=== PATIENT | female | born 1960 | race Two or more races ===

== ENCOUNTER 2017-04-08 18:53 | Emergency (ER) | payer OTHER ==
[~2017-04-08] VITALS: Ht 172.7 cm; Wt 122.5 kg
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
--- NOTE | 2017-04-08 19:15 | NUR ---
PT REC'D AN ICE PACK TO RU CHEST.
--- NOTE | 2017-04-08 19:39 | NUR ---
NO [facility] [employer] ARE AT THE BEDSIDE. PT'S MOTHER AND FRIEND ARE ALSO AT THE BEDSIDE.
[2017-04-08] MEDS ORDERED: MORPHINE SULFATE INJ 4 MG/ML DISP.SYRIN ONE (19:42)
[2017-04-08] MEDS ORDERED: ONDANSETRON 4 MG TAB.RAPDIS ONE (19:42)
--- NOTE | 2017-04-08 19:48 | NUR ---
Mirlande monge in ED - 04/08/17 at 2000 by MARCELLE PT LEFT FOR CT VIA [facility]
[2017-04-08] MEDS ORDERED: MORPHINE SULFATE INJ 2 MG/ML DISP.SYRIN IM ONE (20:00)
[2017-04-08] MEDS ORDERED: ONDANSETRON 4 MG TAB.RAPDIS PO ONE (20:00)
--- NOTE | 2017-04-08 20:11 | NUR ---
PT IS IN RADIOLOGY DEPT FOR IMAGING.
--- NOTE | 2017-04-08 20:15 | NUR ---
PT RETURNED FROM RADIOLOGY VIA [facility].
--- NOTE | 2017-04-08 20:36 | NUR ---
PT REC'D AN ICE PACK FOR RT UPPER CHEST
--- NOTE | 2017-04-08 20:39 | NUR ---
PT IS C/O PAIN 10/01 RT UPPER CHEST, NECK AND LOWER BACK. WILL TELL BRANDIE SORIA
--- NOTE | 2017-04-08 21:10 | NUR ---
PT REC'D ANOTHER ICE PACK FOR RU CHEST
--- NOTE | 2017-04-08 21:13 | NUR ---
20G IV STARTED IN RAC. CALLED RADIOLOGY TO LET THEM KNOW IV WAS INSERTED.
[2017-04-08 21:17] LABS: CALCIUM, SERUM 8.7 mg/dL (8.5-10.1); CREATININE 0.8 mg/dL (0.6-1.3); POTASSIUM 3.5 mmol/L (3.5-5.1)
--- NOTE | 2017-04-08 21:27 | NUR ---
PT IS DECIDING IF SHE WANTS TO GO FOR CT WITH CONTRAST. B BRANDIE CABRAL IS AT THE BEDSIDE SPEAKING TO THE PT.
--- NOTE | 2017-04-08 21:30 | NUR ---
PT REFUSING CT SCAN. SCAN ON HOLD FOR NOW, ER WILL CALL.
[2017-04-08] MEDS ORDERED: IOHEXOL-300 100 ML VIAL IV ONE (21:41)
--- NOTE | 2017-04-08 21:57 | NUR ---
PT LEFT FOR CT VIA GURNEY.
--- NOTE | 2017-04-08 22:07 | NUR ---
PT RETURNED FROM CT.
--- NOTE | 2017-04-08 23:12 | NUR ---
IV removed. Catheter intact and site benign. Pressure and 4x4 applied to site. No bleeding noted.Patient discharged to home in stable condition. Written and verbal after care instructions given. Patient verbalizes understanding of instruction AND RX. PT WAS INSTRUCTED NOT TO DRIVE. VSS. PT AMBULATED OUT SLOWLY WITH A STEADY GAIT. PT'S FRIENDS ARE DRIVING PT HOME.
[2017-04-08 23:13] VITALS: BP 148/87
== END 2017-04-08 23:14 | disposition home or self-care (01) ==
LOC: ER 18:55
DX: S39.012A Strain of muscle, fascia and tendon of lower back, initial encounter (principal); S16.1XXA Strain of muscle, fascia and tendon at neck level, initial encounter; S20.229A Contusion of unspecified back wall of thorax, initial encounter; V49.49XA Driver injured in collision with other motor vehicles in traffic accident, initial encounter; Y93.89 Activity, other specified; Y92.89 Other specified places as the place of occurrence of the external cause; Y99.8 Other external cause status
CPT/HCPCS: 36415; 71045; 72074; 72100; 74160; 80048; 84703; 96372; 99285; A4606; Q9967; Z7610